=== PATIENT | female | born 1980 | race Hispanic/Latino ===

== ENCOUNTER 2019-07-21 11:28 | Day surgery (SDC) | payer OTHER ==
[2019-07-21 08:49] LABS: Hematocrit 39.9 % (30.3-42.9); Hemoglobin 13.2 gm/dl (10.1-14.3); Mean Corpuscular HGB Conc 33 % (30-34); Mean Corpuscular Volume 92 fl (79-97); Platelet Count 235 K/mm3 (140-440); Red Blood Count 4.36 M/mm3 (3.65-5.03); Red Cell Distribution Width 13.3 % (13.2-15.2)
[2019-07-21] MEDS: MIDAZOLAM 2 MG/2 ML INJ IV NR ×2 (08:55→10:20)
[~2019-07-21 11:28] MED LIST: BUPIVACAINE/PF (0.5%) 5 MG/1 ML 30 ML VIAL INFILTRATI ONE; CELECOXIB 200 MG CAP PO NR; GABAPENTIN 300 MG CAP PO NR; GLYCOPYRROLATE 0.4 MG/2 ML INJ ONE; HYDROmorphone 1 MG/1 ML INJ IV PRN; HYDROmorphone 1 MG/1 ML INJ ONE; KETOROLAC 30 MG/1 ML INJ ONE; LACTATED RINGERS 1,000 ML IV SCH; LIDOCAINE MPF (2%) 20 MG/1 ML VIAL 5 ML ONE; MAGNESIUM OXIDE 400 MG TAB PO SCH; NEOSTIGMINE 10MG/10 ML INJ MDV ONE; ROCURONIUM 50 MG/5 ML INJ IV ONE; SCOPOLAMINE TRANSDERMAL PATCH 72 HR TD NR; SODIUM CHLORIDE 0.9% IRR 1,500 ML BOTTLE IR ONE; SUCCINYLCHOLINE CHLORIDE 200 MG/10 ML INJ MDV ONE; ceFAZolin/Water 2 GM/20 ML 2 GM/20 ML SYRINGE IV NR; dexAMETHasone 20 MG/5 ML VIAL ONE; propofoL 200 MG/20 ML VIAL IV ONE
[2019-07-21] MEDS ORDERED: diphenhydrAMINE 50 MG/ML VIAL IV PRN (11:32)
[2019-07-21 12:36] VITALS: BP 132/80
== END 2019-07-21 13:10 | disposition home or self-care (01) ==
LOC: OR 11:28
PROVIDERS: ATTEND Obstetrics & Gynecology
DX: Z30.2 Encounter for sterilization (principal); J45.909 Unspecified asthma, uncomplicated; K21.9 Gastro-esophageal reflux disease without esophagitis; E11.9 Type 2 diabetes mellitus without complications; F17.210 Nicotine dependence, cigarettes, uncomplicated; Z72.89 Other problems related to lifestyle; Z83.3 Family history of diabetes mellitus; Z98.890 Other specified postprocedural states; Z79.899 Other long term (current) drug therapy; Z80.1 Family history of malignant neoplasm of trachea, bronchus and lung
CPT/HCPCS: 36415; 58661; 81025; 85027; 88302; J0330; J0690; J1100; J1170; J1885; J2250; J2704; J2710; J7120; U0003